=== PATIENT | male | born 1935 | race Caucasian/White ===

== ENCOUNTER 2018-12-06 18:07 | Emergency (ER) | payer MEDICARE, OTHER ==
[~2018-12-06] VITALS: Ht 172.7 cm; Wt 78.5 kg
[2018-12-06] MEDS ORDERED: BENA20TA8 PO (18:54)
[2018-12-06] MEDS ORDERED: ASPI81TA85 PO (18:54)
[2018-12-06] MEDS ORDERED: FLOM0.4C39 PO (18:54)
[2018-12-06] MEDS ORDERED: KEFL250C11 PO (18:56)
[2018-12-06 20:29] LABS: BASO % 0.4 % (0.0-1.0); EOS % 0.2 % (0.0-3.0); HEMATOCRIT 45.3 % (42.0-52.0); HEMOGLOBIN 14.9 g/dl (13.5-17.5); LYMPH # 0.8 10^3/uL (1.5-4.5); LYMPH % 9.9 % (24.0-44.0); MEAN CORPUSCULAR HEMOGLOBIN 31.3 pg (27.0-33.0); MEAN CORPUSCULAR HGB CONC 32.9 g/dl (32.0-36.5); MEAN CORPUSCULAR VOLUME 95.2 fl (80.0-96.0); MONO # 0.7 10^3/uL (0.0-0.8); MONO % 9.2 % (0.0-5.0); NEUTROPHILS # 6.4 10^3/uL (1.8-7.7); NEUTROPHILS % 80.1 % (36.0-66.0); PLATELET COUNT, AUTOMATED 204 10^3/uL (150-450); RED BLOOD COUNT 4.76 10^6/uL (4.30-6.10); WHITE BLOOD COUNT 8.1 10^3/uL (4.0-10.0)
[2018-12-06 20:57] LABS: BLOOD UREA NITROGEN 16 MG/DL (7-18); CALCIUM LEVEL 9.4 MG/DL (8.8-10.2); CARBON DIOXIDE LEVEL 25 MEQ/L (21-32); CHLORIDE LEVEL 108 MEQ/L (98-107); CREATININE FOR GFR 0.94 MG/DL (0.70-1.30); GLOMERULAR FILTRATION RATE > 60.0 (>35); GLUCOSE, FASTING 146 MG/DL (70-100); SODIUM LEVEL 141 MEQ/L (136-145)
[2018-12-06] MEDS ORDERED: ISOVUE-370 76% 100ML VIAL (Q9967) As Ordered ONE (21:13)
[2018-12-06 21:20] VITALS: BP 148/74
--- NOTE | 2018-12-06 22:54 | REPVR ---
EXAM: CT Pelvis With Contrast EXAM DATE/TIME: 12/06/2018 9:35 PM CLINICAL HISTORY: 83 years old, male; Pelvic pain; Additional info: Pelvic pain- right side, elevated psa, urinary retention TECHNIQUE: Imaging protocol: Axial computed tomography images of the pelvis with intravenous contrast. Coronal and sagittal reformatted images were created and reviewed. Radiation optimization: All CT scans at this facility use at least one of these dose optimization techniques: automated exposure control; mA and/or kV adjustment per patient size (includes targeted exams where dose is matched to clinical indication); or iterative reconstruction. Contrast material: ISOVUE 370;Contrast volume: 100 ml;Contrast route: IV; COMPARISON: No relevant prior studies available. FINDINGS: Gallbladder and bile ducts: Gallstones in the gallbladder. Kidneys and ureters: There is question of minimal distal right hydroureter which suggests involvement of the right trigone. Stomach and bowel: Sigmoid diverticulosis without diverticulitis. Appendix: There are no changes of appendicitis. A normal appendix is not seen. Bladder: There is a Pappas catheter in the bladder. Reproductive: There is mild prostatic enlargement, particularly on the right. There is slight induration of right periprosthetic fat. Intraperitoneal space: Unremarkable. No free air. No significant fluid collection. Vasculature: There is mild calcification of the abdominal aorta with extension into the iliac arteries. 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 Lymph nodes: Unremarkable. No enlarged lymph nodes. Bones/joints: No osseous sclerosis is noted in the visualized structures. Soft tissues: Unremarkable. IMPRESSION: 1. Pappas catheter in the bladder. 2. There is mild prostatic enlargement, slightly greater on the right. There is question of slight right periprosthetic induration and there is suggestion of minimal distal right hydroureter which suggests possible involvement of the right trigone. 3. Colonic diverticulosis without diverticulitis. Electronically signed by: Curt Khoury On 12/06/2018 22:54:06 PM
== END 2018-12-06 23:41 | disposition home or self-care (01) ==
LOC: M ED 18:07
DX: R33.9 Retention of urine, unspecified (principal); R39.12 Poor urinary stream; N40.1 Benign prostatic hyperplasia with lower urinary tract symptoms; I10 Essential (primary) hypertension; Z79.899 Other long term (current) drug therapy; Z79.82 Long term (current) use of aspirin
CPT/HCPCS: 36415; 51702; 72193; 80048; 81001; 85025; 87086; 99284; G0103; Q9967

== ENCOUNTER → 2018-12-06 | Outpatient (REF) | payer MEDICARE, OTHER ==
[~2018-12-06] MED LIST: ASPI81TA85 PO; BENA20TA8 PO; FLOM0.4C39 PO; KEFL250C11 PO
== END ==
LOC: M LAB REF 12:54
PROVIDERS: ATTEND Physician Assistant
DX: R39.12 Poor urinary stream (principal)

== ENCOUNTER → 2018-12-16 | Outpatient (CLI) | payer MEDICARE, OTHER ==
[~2018-12-16] MED LIST changes: +ISOVUE-370 76% 100ML VIAL (Q9967) As Ordered ONE
--- NOTE | 2018-12-17 07:15 | REP ---
REASON FOR EXAM: Microscopic hematuria. Comparison examination 12/06/2018 CT of the pelvis, 01/08/2017 CT abdomen and pelvis. CONTRAST: 100 mL Isovue 370. The lung bases are unchanged. There is cylindrical bronchiectasis. There is mild lung field hyperexpansion. There is cholelithiasis status quo. The precontrast enhanced portion of the examination shows a tiny calcification in the interpolar region of the left kidney unchanged from 01/08/2017. It is not causing obstructive phenomenon. There are bilateral renovascular calcifications. There is no hydronephrosis or hydroureter. There are no ureteroliths. There are no urinary bladder calcifications. 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 The contrast enhanced portion of the examination shows a focal cortical defect in the interpolar region of the left kidney which is unchanged and consistent with a small renal scar. There is also an unchanged cyst in the left kidney. There are no enhancing renal masses. The liver and spleen are unchanged and again seen to be within normal limits. The pancreas and adrenal glands are unchanged and again seen to be within normal limits. The abdominal aorta is seen with calcific atherosclerotic change and mural thrombus status quo. There is no para-aortic adenopathy. There is no free fluid or free air. The bowel loops and the mesenteries are essentially unchanged. There is colonic diverticulosis particularly affecting the descending colon. CT PELVIS: There is prostatomegaly. There is no pelvic side wall adenopathy. There is sigmoid colon diverticulosis status quo. There is no free fluid or free air. Bone window technique throughout the exam shows chronic hip, sacroiliac joint, and spinal degenerative changes status quo. IMPRESSION: Chronic intra-abdominal and intrapelvic findings as described above. There is cholelithiasis. There are old left renal changes as described above. There is colonic diverticulosis. There is no evidence of acute intra-abdominal or intrapelvic disease. There are chronic lung base changes as well. Electronically Signed by Forrest Ryan DO 12/17/2018 10:06 A
== END ==
LOC: M RAD 15:55
PROVIDERS: ATTEND Nurse Practitioner Women's Health
DX: K80.20 Calculus of gallbladder without cholecystitis without obstruction (principal); K57.90 Diverticulosis of intestine, part unspecified, without perforation or abscess without bleeding; R91.8 Other nonspecific abnormal finding of lung field
CPT/HCPCS: 74178; Q9967

== ENCOUNTER → 2022-03-14 | Outpatient (REF) | payer MEDICARE, OTHER ==
[~2022-03-14] MED LIST changes: -ASPI81TA85 PO; +ASPI81TA86 PO; +BENA-8 PO; -BENA20TA8 PO; -ISOVUE-370 76% 100ML VIAL (Q9967) As Ordered ONE
== END ==
LOC: M LAB REF 12:06
PROVIDERS: ATTEND Nurse Practitioner Adult Health
DX: M25.59 Pain in other specified joint (principal)

== ENCOUNTER → 2022-10-05 | Outpatient (CLI) | payer MEDICARE, OTHER | LOC: M WUC 15:17 | PROVIDERS: ATTEND Internal Medicine | DX: R06.02 Shortness of breath (principal) ==

== ENCOUNTER → 2022-11-07 | Outpatient (CLI) | payer MEDICARE, OTHER ==
[~2022-11-07] MED LIST changes: +E-Z-GAS II EFFERVESCENT PACKET (SODIUM BICARB./CITRIC ACID/SIMETHICONE) As Ordered ONE; +E-Z-HD 98% w/w 340GM SUSP BTL As Ordered ONE; +E-Z-PAQUE 96% w/w SUSP 176GM BTL As Ordered ONE
== END ==
LOC: M RAD 08:11
PROVIDERS: ATTEND Internal Medicine
DX: R13.10 Dysphagia, unspecified (principal)

== ENCOUNTER 2023-05-06 10:29 | Emergency (ER) | payer MEDICARE, OTHER ==
[~2023-05-06] VITALS: Ht 154.9 cm; Wt 65.1 kg
[~2023-05-06 10:29] MED LIST changes: -E-Z-GAS II EFFERVESCENT PACKET (SODIUM BICARB./CITRIC ACID/SIMETHICONE) As Ordered ONE; -E-Z-HD 98% w/w 340GM SUSP BTL As Ordered ONE; -E-Z-PAQUE 96% w/w SUSP 176GM BTL As Ordered ONE
[2023-05-06] MEDS ORDERED: AMLO1TAB24 (10:43)
[2023-05-06] MEDS ORDERED: IPRATROPIUM 0.5MG/ALBUTEROL 2.5MG INH SOL UD 3ML (DUONEB) NEB ONE ×2 (10:55→11:15)
[2023-05-06] MEDS ORDERED: NS 500 ML IV ONE (10:55)
[2023-05-06] MEDS ORDERED: NS 1,000 ML IV SCH (10:55)
[2023-05-06] MEDS ORDERED: methylPREDNISolone 125MG 2ML VIAL IV ONE (10:55)
[2023-05-06] MEDS ORDERED: ALBUTEROL SULFATE 2.5MG/0.5ML INH NEB SOLN INH ONE ×3 (10:55→13:50)
[2023-05-06 11:42] LABS: BASO % 0.1 % (0.0-1.0); HEMATOCRIT 34.5 % (42.0-52.0); HEMOGLOBIN 11.3 g/dl (13.5-17.5); LYMPH # 0.5 10^3/uL (1.5-5.0); LYMPH % 6.7 % (24.0-44.0); MEAN CORPUSCULAR HEMOGLOBIN 29.1 pg (27.0-33.0); MEAN CORPUSCULAR HGB CONC 32.8 g/dl (32.0-36.5); MEAN CORPUSCULAR VOLUME 88.9 fl (80.0-96.0); MONO # 0.8 10^3/uL (0.0-0.8); MONO % 10.9 % (2.0-8.0); NEUTROPHILS # 6.2 10^3/uL (1.5-8.5); NEUTROPHILS % 81.9 % (36.0-66.0); PLATELET COUNT, AUTOMATED 301 10^3/uL (150-450); RED BLOOD COUNT 3.88 10^6/uL (4.30-6.10); WHITE BLOOD COUNT 7.6 10^3/uL (4.0-10.0)
[2023-05-06 11:52] LABS: ABG BASE EXCESS 1.6 (-2.0-2.0); ABG HCO3 24.4 MMOL/L (22.0-26.0); ABG O2 SATURATION 97.4 % (95.0-99.0); ABG PARTIAL PRESSURE CO2 32.5 mmHg (35.0-45.0); ABG PARTIAL PRESSURE O2 90.8 mmHg (75.0-100.0); ABG STANDARD HCO3 25.9 MMOL/L. (22.0-26.0); ABG TOTAL CO2 25.4 MMOL/L (23.0-31.0); ABG pH (ARTERIAL) 7.494 UNITS (7.350-7.450)
[2023-05-06 12:07] LABS: ALBUMIN 2.8 G/DL (3.2-5.2); ALKALINE PHOSPHATASE 60 U/L (46-116); ALT/SGPT 22 U/L (7.0-40); AST/SGOT 22 U/L (<34); BILIRUBIN,DIRECT 0.5 MG/DL (<0.4); BILIRUBIN,TOTAL 1.2 MG/DL (0.3-1.2); BLOOD UREA NITROGEN 12 MG/DL (9-23); CALCIUM LEVEL 8.7 MG/DL (8.3-10.6); CARBON DIOXIDE LEVEL 26 MMOL/L (20-31); CHLORIDE LEVEL 101 MMOL/L (98-107); CK-MB VALUE MASS < 1.0 NG/ML (<3.6); CPK CREATINE PHOSPHOKINASE 41 U/L (46-171); CREATININE FOR GFR 0.65 MG/DL (0.70-1.30); GLOMERULAR FILTRATION RATE > 60.0 (>35); GLUCOSE, FASTING 152 MG/DL (74-106); MB/CK RELATIVE INDEX 2.43 (< OR =4); POTASSIUM SERUM 3.6 MMOL/L (3.5-5.1); SODIUM LEVEL 133 MMOL/L (136-145); TOTAL PROTEIN 7.1 G/DL (5.7-8.2)
[2023-05-06 12:09] LABS: THYROID STIMULATING HORMONE 3.377 uIU/ML (0.55-4.78); THYROXINE (T4) 7.6 UG/DL (4.5-10.9)
[2023-05-06 13:09] LABS: CK-MB VALUE MASS < 1.0 NG/ML (<3.6)
[2023-05-06 13:11] LABS: CPK CREATINE PHOSPHOKINASE 57 U/L (46-171); MB/CK RELATIVE INDEX 1.75 (< OR =4)
[2023-05-06] MEDS ORDERED: MOXIFLOXACIN 400 MG TAB PO ONE (13:50)
[2023-05-06] MEDS ORDERED: PRED20TA PO (13:51)
[2023-05-06] MEDS ORDERED: MOXI1TAB PO (13:51)
[2023-05-06] MEDS ORDERED: ALBU6.7H6 INH (13:52)
[2023-05-06] MEDS ORDERED: ALBUTEROL 90 MCG/ACT 8GM HFA INHALER INH ONE (14:00)
[2023-05-06 14:30] VITALS: BP 125/72; TEMP 98.6; O2SAT 96
== END 2023-05-06 14:32 | disposition home or self-care (01) ==
LOC: M ED 10:29
DX: J20.9 Acute bronchitis, unspecified (principal); R00.0 Tachycardia, unspecified; I44.4 Left anterior fascicular block; I10 Essential (primary) hypertension; Z87.891 Personal history of nicotine dependence; Z79.52 Long term (current) use of systemic steroids; Z79.82 Long term (current) use of aspirin; Z79.899 Other long term (current) drug therapy
CPT/HCPCS: 36600; 71045; 80048; 80076; 82550; 82553; 82803; 83605; 83880; 84436; 84443; 84484; 85025; 87040; 87486; 87581; 87633; 87798; 93005; 93041; 94640; 94664; 94760; 96361; 96374; 99285; J2930

== ENCOUNTER → 2023-09-27 | Outpatient (CLI) | payer MEDICARE, OTHER ==
[~2023-09-27] MED LIST changes: +ALBU6.7H6 INH; +AMLO1TAB24; +MOXI1TAB PO; +PRED20TA PO
[2023-09-27 18:29] LABS: BASO % 0.3 % (0.0-1.0); EOS % 0.2 % (0.0-3.0); HEMATOCRIT 33.6 % (42.0-52.0); HEMOGLOBIN 12.5 g/dl (13.5-17.5); LYMPH # 0.7 10^3/uL (1.5-5.0); LYMPH % 11.1 % (24.0-44.0); MEAN CORPUSCULAR HEMOGLOBIN 34.6 pg (27.0-33.0); MEAN CORPUSCULAR VOLUME 93.1 fl (80.0-96.0); MONO # 1.1 10^3/uL (0.0-0.8); MONO % 17.2 % (2.0-8.0); NEUTROPHILS # 4.3 10^3/uL (1.5-8.5); NEUTROPHILS % 70.5 % (36.0-66.0); PLATELET COUNT, AUTOMATED 411 10^3/uL (150-450); RED BLOOD COUNT 3.61 10^6/uL (4.30-6.10); WHITE BLOOD COUNT 6.1 10^3/uL (4.0-10.0)
[2023-09-27 18:33] LABS: MEAN CORPUSCULAR HGB CONC 37.2 g/dl (32.0-36.5)
[2023-09-27 18:48] LABS: ALKALINE PHOSPHATASE 76 U/L (46-116); ALT/SGPT 19 U/L (7.0-40); AST/SGOT 20 U/L (<34); BILIRUBIN,TOTAL 0.7 MG/DL (0.3-1.2); BLOOD UREA NITROGEN 15 MG/DL (9-23); CALCIUM LEVEL 9.2 MG/DL (8.3-10.6); CARBON DIOXIDE LEVEL 24 MMOL/L (20-31); CHLORIDE LEVEL 100 MMOL/L (98-107); CREATININE FOR GFR 0.73 MG/DL (0.70-1.30); GLOMERULAR FILTRATION RATE > 60.0 (>35); GLUCOSE, FASTING 206 MG/DL (74-106); SODIUM LEVEL 134 MMOL/L (136-145); TOTAL PROTEIN 7.3 G/DL (5.7-8.2)
== END ==
LOC: M WUC 14:31
PROVIDERS: ATTEND Student in an Organized Health Care Education/Training Program
DX: R06.02 Shortness of breath (principal); R30.0 Dysuria

== ENCOUNTER → 2023-12-31 | Outpatient (REF) | payer MEDICARE ==
[2023-12-31 17:49] LABS: FERRITIN 370.4 NG/ML (10.5-307.3); FOLATE 16.4 NG/ML (>5.4)
== END ==
LOC: M LAB REF 16:23
PROVIDERS: ATTEND Internal Medicine
DX: D64.9 Anemia, unspecified (principal)

== ENCOUNTER 2024-04-07 12:20 | Inpatient (IN) | payer MEDICARE ==
[~2024-04-07] VITALS: Ht 154.9 cm; Wt 57.5 kg
[~2024-04-07 12:20] MED LIST changes: -AMLO1TAB24; +AMLO1TAB24 PO
[2024-04-07 13:16] LABS: BASO % 0.1 % (0.0-1.0); HEMATOCRIT 37.2 % (42.0-52.0); HEMOGLOBIN 12.4 g/dl (13.5-17.5); LYMPH # 0.4 10^3/uL (1.5-5.0); LYMPH % 5.2 % (24.0-44.0); MEAN CORPUSCULAR HEMOGLOBIN 29.1 pg (27.0-33.0); MEAN CORPUSCULAR HGB CONC 33.3 g/dl (32.0-36.5); MEAN CORPUSCULAR VOLUME 87.3 fl (80.0-96.0); MONO # 0.4 10^3/uL (0.0-0.8); MONO % 5.6 % (2.0-8.0); NEUTROPHILS # 6.3 10^3/uL (1.5-8.5); NEUTROPHILS % 88.8 % (36.0-66.0); PLATELET COUNT, AUTOMATED 414 10^3/uL (150-450); RED BLOOD COUNT 4.26 10^6/uL (4.30-6.10); WHITE BLOOD COUNT 7.1 10^3/uL (4.0-10.0)
[2024-04-07] MEDS: NS 500 ML IV ONE (13:35)
[2024-04-07 13:38] LABS: AMPHETAMINES LEVEL URINE NEGATIVE (NEGATIVE); BARBITURATES URINE NEGATIVE (NEGATIVE); BENZODIAZEPINES URINE NEGATIVE (NEGATIVE); COCAINE METABOLITE URINE NEGATIVE (NEGATIVE); METHADONE URINE NEGATIVE (NEGATIVE); OPIATES URINE NEGATIVE (NEGATIVE); PHENCYCLIDINE URINE NEGATIVE (NEGATIVE)
[2024-04-07 13:39] LABS: CANNABINOIDS URINE NEGATIVE (NEGATIVE)
[2024-04-07 13:39] LABS: ETHYL ALCOHOL (ETHANOL) < 0.003 % (0.000-0.010)
[2024-04-07 13:40] LABS: ALBUMIN 2.8 G/DL (3.2-5.2); ALKALINE PHOSPHATASE 78 U/L (40-129); ALT/SGPT 24 U/L (7.0-40); AST/SGOT 41 U/L (<34); BILIRUBIN,DIRECT 0.2 MG/DL (<0.4); BILIRUBIN,TOTAL 0.8 MG/DL (0.3-1.2); BLOOD UREA NITROGEN 13 MG/DL (9-23); CALCIUM LEVEL 8.9 MG/DL (8.3-10.6); CARBON DIOXIDE LEVEL 26 MMOL/L (20-31); CHLORIDE LEVEL 105 MMOL/L (98-107); CK-MB VALUE MASS 2.1 NG/ML (<3.6); CREATININE FOR GFR 0.74 MG/DL (0.70-1.30); GLOMERULAR FILTRATION RATE > 60.0 (>35); GLUCOSE, FASTING 152 MG/DL (74-106); POTASSIUM SERUM 4.1 MMOL/L (3.5-5.1); SALICYLATE LEVEL < 3.0 MG/DL (<30); SODIUM LEVEL 139 MMOL/L (136-145); TOTAL PROTEIN 7.5 G/DL (5.7-8.2)
[2024-04-07 13:44] LABS: THYROID STIMULATING HORMONE 2.793 uIU/ML (0.55-4.78)
[2024-04-07 13:45] LABS: CPK CREATINE PHOSPHOKINASE 259 U/L (46-171); MB/CK RELATIVE INDEX 0.81 (< OR =4)
[2024-04-07] MEDS: ACETAMINOPHEN *IV* 1,000 MG in IV 1 EA IV ONE (14:00)
[2024-04-07 14:05] LABS: VENOUS BASE EXCESS 0.9 (-2.0-2.0); VENOUS HCO3 25.7 MMOL/L (23.0-27.0); VENOUS O2 SATURATION 69.7 % (60.0-80.0); VENOUS PARTIAL PRESSURE CO2 41.7 mmHg (38.0-50.0); VENOUS PARTIAL PRESSURE O2 37.1 mmHg (30.0-50.0); VENOUS PH 7.407 UNITS (7.330-7.430); VENOUS STANDARD HCO3 24.6 MMOL/L; VENOUS TOTAL CO2 26.9 MMOL/L (24.0-28.0)
[2024-04-07 15:08] LABS: OSMOLALITY SERUM 298 MOSM/KG (280-301)
[2024-04-07] MEDS: METOPROLOL 5 MG/5 ML VIAL IV STA (16:30)
[2024-04-07] MEDS: NS 1,000 ML IV SCH (16:35)
[2024-04-07] MEDS ORDERED: GLUCAGON INJ 1MG VIAL SC PRN (17:45)
[2024-04-07] MEDS ORDERED: GLUCOSE 4 GM CHEW PO PRN (17:45)
[2024-04-07] MEDS ORDERED: DEXTROSE 50% 50ML SYRINGE IV PRN (17:45)
[2024-04-07] MEDS: cefTRIAXone SOD 1 GM in DEXTROSE 5% (D5W) ADV/MINI-BAG 50 ML IV SCH (18:00)
[2024-04-07] MEDS ORDERED: HOME MED LIST COMPLETE! XX SCH (18:25)
[2024-04-07 18:36] LABS: HEMOGLOBIN A1c 5.9 % (4.0-6.0)
[2024-04-07 18:56] LABS: FREE T4 0.92 NG/DL (0.89-1.76); THYROID STIMULATING HORMONE 2.207 uIU/ML (0.55-4.78)
[2024-04-07] MEDS: INSULIN LISPRO (NovoLOG) PER UNIT SC SCH (21:00)
[2024-04-07] MEDS: DOXYCYCLINE HYCLATE 100MG TABLET PO SCH (21:00)
[2024-04-07 22:20] VITALS: BP 133/76; TEMP 97.8; O2SAT 100
[2024-04-08 04:27] VITALS: BP 122/73; TEMP 97.5; O2SAT 96
[2024-04-08 06:06] LABS: HEMATOCRIT 33.1 % (42.0-52.0); HEMOGLOBIN 10.6 g/dl (13.5-17.5); MEAN CORPUSCULAR HEMOGLOBIN 28.3 pg (27.0-33.0); MEAN CORPUSCULAR VOLUME 88.5 fl (80.0-96.0); PLATELET COUNT, AUTOMATED 358 10^3/uL (150-450); RED BLOOD COUNT 3.74 10^6/uL (4.30-6.10); WHITE BLOOD COUNT 4.4 10^3/uL (4.0-10.0)
[2024-04-08 06:37] LABS: ALBUMIN 2.2 G/DL (3.2-5.2); ALKALINE PHOSPHATASE 63 U/L (40-129); ALT/SGPT 18 U/L (7.0-40); AST/SGOT 22 U/L (<34); BILIRUBIN,TOTAL 0.5 MG/DL (0.3-1.2); BLOOD UREA NITROGEN 14 MG/DL (9-23); CALCIUM LEVEL 8.3 MG/DL (8.3-10.6); CARBON DIOXIDE LEVEL 25 MMOL/L (20-31); CHLORIDE LEVEL 108 MMOL/L (98-107); CREATININE FOR GFR 0.82 MG/DL (0.70-1.30); GLOMERULAR FILTRATION RATE > 60.0 (>35); GLUCOSE, FASTING 110 MG/DL (74-106); POTASSIUM SERUM 3.5 MMOL/L (3.5-5.1); SODIUM LEVEL 141 MMOL/L (136-145); TOTAL PROTEIN 6.5 G/DL (5.7-8.2)
[2024-04-08] MEDS: INSULIN LISPRO (NovoLOG) PER UNIT SC SCH (07:30)
[2024-04-08 08:02] LABS: ERYTHROCYTE SEDIMENTATION RATE 33 mm/hr (0-20)
[2024-04-08 08:35] VITALS: BP 143/79; TEMP 98.2; O2SAT 96
[2024-04-08 10:53] LABS: PROCALCITONIN <0.04 ng/ml
[2024-04-08 11:35] LABS: FOLATE 12.36 NG/ML (>5.4); VITAMIN B12 LEVEL 678 PG/ML (211-911)
[2024-04-08 12:06] VITALS: BP 142/73; TEMP 98.2; O2SAT 96
[2024-04-08] MEDS ORDERED: METOPROLOL 5 MG/5 ML VIAL As Ordered ONE (14:00)
[2024-04-08] MEDS: METOPROLOL 5 MG/5 ML VIAL IV SCH (14:05)
[2024-04-08] MEDS: MIDODRINE 5 MG TAB PO ONE (15:15)
[2024-04-08 15:19] VITALS: BP 136/88; TEMP 98.1; O2SAT 97
[2024-04-08] MEDS: METOPROLOL 5 MG/5 ML VIAL IV STA (15:25)
[2024-04-08] MEDS: METOPROLOL TART 25 MG TABLET PO ONE (15:25)
[2024-04-08] MEDS: DIGOXIN INJ 0.5 MG/2 ML AMP IV STA (15:26)
[2024-04-08] MEDS: atenoloL 50 MG TAB PO ONE (17:18)
[2024-04-08] MEDS ORDERED: METOPROLOL TART 25 MG TABLET PO SCH (18:00)
[2024-04-08 19:17] VITALS: BP 155/87; TEMP 98; O2SAT 96
[2024-04-09 00:11] VITALS: BP 164/80; TEMP 98.4; O2SAT 98
[2024-04-09 05:42] VITALS: BP 145/72; TEMP 98.8; O2SAT 98
[2024-04-09] MEDS ORDERED: ISOVUE-370 76% 100ML VIAL As Ordered ONE (07:07)
[2024-04-09] MEDS: atenoloL 50 MG TAB PO ONE (07:24)
[2024-04-09] MEDS: DIGOXIN INJ 0.5 MG/2 ML AMP IV ONE (07:24)
[2024-04-09 08:00] VITALS: BP 122/80; TEMP 99.8; O2SAT 94
[2024-04-09 09:05] LABS: HEMATOCRIT 32.6 % (42.0-52.0); HEMOGLOBIN 10.8 g/dl (13.5-17.5); MEAN CORPUSCULAR HGB CONC 33.1 g/dl (32.0-36.5); MEAN CORPUSCULAR VOLUME 87.6 fl (80.0-96.0); PLATELET COUNT, AUTOMATED 339 10^3/uL (150-450); RED BLOOD COUNT 3.72 10^6/uL (4.30-6.10); WHITE BLOOD COUNT 8.9 10^3/uL (4.0-10.0)
[2024-04-09 09:12] LABS: ERYTHROCYTE SEDIMENTATION RATE 59 mm/hr (0-20)
[2024-04-09] MEDS ORDERED: VARIBAR PUDDING 40% w/v 230ML TUBE As Ordered ONE (09:15)
[2024-04-09] MEDS ORDERED: E-Z-PAQUE 96% w/w SUSP 176GM BTL As Ordered ONE (09:16)
[2024-04-09] MEDS ORDERED: BARIUM SULFATE 700 MG TABLET (E-Z-DISK) As Ordered ONE (09:16)
[2024-04-09] MEDS ORDERED: VARIBAR NECTAR 40% w/v 240ML SUSP BTL As Ordered ONE (09:16)
[2024-04-09 09:24] LABS: ALBUMIN 2.2 G/DL (3.2-5.2); ALKALINE PHOSPHATASE 63 U/L (40-129); ALT/SGPT 17 U/L (7.0-40); AST/SGOT 23 U/L (<34); BILIRUBIN,TOTAL 0.6 MG/DL (0.3-1.2); BLOOD UREA NITROGEN 13 MG/DL (9-23); CALCIUM LEVEL 8.4 MG/DL (8.3-10.6); CARBON DIOXIDE LEVEL 23 MMOL/L (20-31); CHLORIDE LEVEL 106 MMOL/L (98-107); CREATININE FOR GFR 0.63 MG/DL (0.70-1.30); DIGOXIN LEVEL 0.8 NG/ML (0.8-2.0); GLOMERULAR FILTRATION RATE > 60.0 (>35); GLUCOSE, FASTING 154 MG/DL (74-106); POTASSIUM SERUM 3.3 MMOL/L (3.5-5.1); SODIUM LEVEL 138 MMOL/L (136-145); TOTAL PROTEIN 6.6 G/DL (5.7-8.2)
[2024-04-09 09:35] LABS: PROCALCITONIN <0.04 ng/ml
[2024-04-09 11:47] VITALS: BP 120/75; TEMP 99.5; O2SAT 95
[2024-04-09] MEDS: POTASSIUM CHLORIDE 10MEQ SR TABLET PO ONE (12:56)
[2024-04-09 16:00] VITALS: BP 117/67; TEMP 98; O2SAT 97
[2024-04-09 20:07] VITALS: BP 127/73; TEMP 98.2; O2SAT 98
[2024-04-10] VITALS (9 sets, daily range): BP systolic 101–152; BP diastolic 54–83; TEMP 97.4–101.3; O2SAT 94–99
[2024-04-10] MEDS: ACETAMINOPHEN 325 MG TAB PO PRN (02:12)
[2024-04-10] MEDS: atenoloL 50 MG TAB PO SCH (07:52)
[2024-04-10] MEDS: POTASSIUM CHLORIDE 10MEQ SR TABLET PO SCH (08:21)
[2024-04-10] MEDS: FINASTERIDE 5MG TAB PO SCH (08:24)
[2024-04-10] MEDS: PANTOPRAZOLE 40MG VIAL IV ONE (09:34)
[2024-04-10] MEDS: NS 500 ML IV ONE (09:34)
[2024-04-10] MEDS: SUCRALFATE SUSP 1GM/10ML UD PO ONE (09:34)
[2024-04-10] MEDS: ONDANSETRON 4MG 2ML VIAL IV ONE (09:34)
[2024-04-10] MEDS: NITROGLYCERIN 0.4MG SUBL TABLET SL STA (09:39)
[2024-04-10 10:10] LABS: BASO % 0.3 % (0.0-1.0); EOS % 0.1 % (0.0-3.0); HEMATOCRIT 34.6 % (42.0-52.0); HEMOGLOBIN 11.4 g/dl (13.5-17.5); LYMPH # 0.7 10^3/uL (1.5-5.0); LYMPH % 9.6 % (24.0-44.0); MEAN CORPUSCULAR HEMOGLOBIN 29.3 pg (27.0-33.0); MEAN CORPUSCULAR HGB CONC 32.9 g/dl (32.0-36.5); MEAN CORPUSCULAR VOLUME 88.9 fl (80.0-96.0); MONO # 0.5 10^3/uL (0.0-0.8); MONO % 7.1 % (2.0-8.0); NEUTROPHILS # 5.7 10^3/uL (1.5-8.5); NEUTROPHILS % 82.5 % (36.0-66.0); RED BLOOD COUNT 3.89 10^6/uL (4.30-6.10); WHITE BLOOD COUNT 6.9 10^3/uL (4.0-10.0)
[2024-04-10 10:20] LABS: CK-MB VALUE MASS < 1.0 NG/ML (<3.6); LIPASE 23 U/L (12-53)
[2024-04-10 10:27] LABS: ALBUMIN 2.4 G/DL (3.2-5.2); ALKALINE PHOSPHATASE 63 U/L (40-129); ALT/SGPT 19 U/L (7.0-40); AST/SGOT 26 U/L (<34); BILIRUBIN,TOTAL 0.5 MG/DL (0.3-1.2); BLOOD UREA NITROGEN 21 MG/DL (9-23); CALCIUM LEVEL 8.8 MG/DL (8.3-10.6); CARBON DIOXIDE LEVEL 28 MMOL/L (20-31); CHLORIDE LEVEL 110 MMOL/L (98-107); CPK CREATINE PHOSPHOKINASE 62 U/L (46-171); CREATININE FOR GFR 0.73 MG/DL (0.70-1.30); GLOMERULAR FILTRATION RATE > 60.0 (>35); GLUCOSE, FASTING 111 MG/DL (74-106); MAGNESIUM LEVEL 1.9 MG/DL (1.8-2.4); MB/CK RELATIVE INDEX 1.61 (< OR =4); POTASSIUM SERUM 3.6 MMOL/L (3.5-5.1); SODIUM LEVEL 143 MMOL/L (136-145); TOTAL PROTEIN 6.9 G/DL (5.7-8.2)
[2024-04-10 10:33] LABS: PLATELET COUNT, AUTOMATED 341 10^3/uL (150-450)
[2024-04-10] MEDS: metroNIDAZOLE 500 MG in IV 1 EA IV SCH (12:07)
[2024-04-11 03:36] VITALS: BP 157/80; TEMP 98.3; O2SAT 97
[2024-04-11] MEDS ORDERED: METOPROLOL TART 25 MG TABLET PO PRN (07:35)
[2024-04-11 08:00] VITALS: BP 138/66; TEMP 97.7; O2SAT 96
[2024-04-11] MEDS: PANTOPRAZOLE 40MG VIAL IV SCH (08:53)
[2024-04-11 11:38] VITALS: BP 149/65; TEMP 98; O2SAT 82
[2024-04-11] MEDS: CEFDINIR 300 MG CAP (OMNICEF) PO SCH (12:48)
[2024-04-11 16:00] VITALS: BP 143/70; TEMP 97.7; O2SAT 97
[2024-04-11 19:20] VITALS: BP 154/75; TEMP 97.7; O2SAT 98
[2024-04-11] MEDS: metroNIDAZOLE (FLAGYL) 500MG TABLET PO SCH (22:24)
[2024-04-11 22:25] VITALS: BP 156/75; TEMP 99.1; O2SAT 98
[2024-04-12 03:00] VITALS: BP 128/65; TEMP 98.2; O2SAT 97
[2024-04-12 07:42] VITALS: BP 154/74; TEMP 98; O2SAT 97
[2024-04-12] MEDS: METOPROLOL TART 12.5 MG PER 1/2 TAB PO ONE (09:20)
[2024-04-12] MEDS: NITROGLYCERIN 2% OINT 1 GM *U/D* PKT TOP ONE (09:30)
[2024-04-12] MEDS: CALCIUM CARBONATE 500 MG CHEW U/D PO ONE (10:00)
[2024-04-12] MEDS ORDERED: CALCIUM CARBONATE 500 MG CHEW U/D PO PRN (10:00)
[2024-04-12] MEDS ORDERED: CARA1TAB6 PO (10:56)
[2024-04-12] MEDS ORDERED: METO1TAB87 PO (10:56)
[2024-04-12] MEDS ORDERED: DOXY100T PO (10:56)
[2024-04-12] MEDS ORDERED: PROT1TAB2 PO (10:56)
[2024-04-12] MEDS ORDERED: CEFD300CAP PO (10:56)
[2024-04-12] MEDS ORDERED: METR-265 PO (10:56)
[2024-04-12 11:52] VITALS: BP 131/71; TEMP 98.1; O2SAT 99
[2024-04-12] MEDS: SUCRALFATE SUSP 1GM/10ML UD PO SCH (12:00)
[2024-04-12] MEDS: METOPROLOL TART 12.5 MG PER 1/2 TAB PO SCH (12:40)
[2024-04-12 17:53] VITALS: BP 140/75
[2024-04-12 20:00] VITALS: BP 143/75; TEMP 96.8; O2SAT 96
[2024-04-12 23:30] VITALS: BP 143/75
[2024-04-13 04:00] VITALS: BP 155/87; TEMP 97.7; O2SAT 96
[2024-04-13 13:08] VITALS: BP 138/80
[2024-04-13] MEDS: METOPROLOL TART 25 MG TABLET PO SCH (13:11)
[2024-04-13 17:54] VITALS: BP 139/81
[2024-04-13 20:00] VITALS: BP 136/82; TEMP 98.1; O2SAT 99
[2024-04-13] MEDS: DOXAZOSIN MESYLATE 1 MG TAB PO SCH (21:39)
[2024-04-14] VITALS (7 sets, daily range): BP systolic 94–130; BP diastolic 66–72; TEMP 97.3–98.1; O2SAT 84–99
[2024-04-14 01:27] LABS: ALBUMIN 2.2 G/DL (3.2-5.2); ALKALINE PHOSPHATASE 53 U/L (40-129); ALT/SGPT 12 U/L (7.0-40); AST/SGOT 21 U/L (<34); BILIRUBIN,TOTAL 0.5 MG/DL (0.3-1.2); BLOOD UREA NITROGEN 12 MG/DL (9-23); CALCIUM LEVEL 8.5 MG/DL (8.3-10.6); CARBON DIOXIDE LEVEL 26 MMOL/L (20-31); CHLORIDE LEVEL 109 MMOL/L (98-107); CREATININE FOR GFR 0.56 MG/DL (0.70-1.30); GLOMERULAR FILTRATION RATE > 60.0 (>35); GLUCOSE, FASTING 126 MG/DL (74-106); MAGNESIUM LEVEL 1.8 MG/DL (1.8-2.4); POTASSIUM SERUM 3.5 MMOL/L (3.5-5.1); SODIUM LEVEL 144 MMOL/L (136-145); TOTAL PROTEIN 6.3 G/DL (5.7-8.2)
[2024-04-14] MEDS: PANTOPRAZOLE 40MG TAB (PROTONIX) PO SCH (08:41)
[2024-04-14] MEDS: MIDODRINE 5 MG TAB PO SCH (17:38)
[2024-04-15 03:36] VITALS: BP 146/82; TEMP 98.2; O2SAT 96
[2024-04-15 11:51] VITALS: BP 119/66
[2024-04-15] MEDS: FAMOTIDINE 20 MG TAB PO SCH (11:52)
[2024-04-15 17:03] VITALS: BP 127/70
[2024-04-15] MEDS: BISACODYL 10MG SUPP PR ONE (17:33)
[2024-04-15] MEDS ORDERED: DOXA1TAB91 PO (17:42)
[2024-04-15] MEDS ORDERED: SUCR1ORA PO (17:42)
[2024-04-15] MEDS ORDERED: FAMO20TA PO (17:42)
[2024-04-15] MEDS ORDERED: SENN1TAB85 PO (17:44)
== END 2024-04-15 18:45 | disposition home health service (06) | DRG 557 ==
LOC: EDBD 12:20 → M ED 12:20 → M ED INP 17:32 → M PCU 22:26 → M MS5PR 04-12 11:30
PROVIDERS: ADMIT Hospitalist; ATTEND Internal Medicine Nephrology
DX: M62.82 Rhabdomyolysis (principal); G93.41 Metabolic encephalopathy; J69.0 Pneumonitis due to inhalation of food and vomit; I47.10 Supraventricular tachycardia, unspecified; K21.9 Gastro-esophageal reflux disease without esophagitis; E11.9 Type 2 diabetes mellitus without complications; I10 Essential (primary) hypertension; R13.12 Dysphagia, oropharyngeal phase; N40.0 Benign prostatic hyperplasia without lower urinary tract symptoms; E78.5 Hyperlipidemia, unspecified; F03.90 Unspecified dementia, unspecified severity, without behavioral disturbance, psychotic disturbance, mood disturbance, and anxiety; K44.9 Diaphragmatic hernia without obstruction or gangrene; R33.9 Retention of urine, unspecified; J43.9 Emphysema, unspecified; Z79.899 Other long term (current) drug therapy; Z79.82 Long term (current) use of aspirin

== ENCOUNTER 2024-04-18 11:10 | Observation (INO) | payer MEDICARE ==
[~2024-04-18 11:10] MED LIST changes: +CARA1TAB6 PO; +CEFD300CAP PO; +DOXA1TAB91 PO; +DOXY100T PO; +FAMO20TA PO; +METO1TAB87 PO; +METR-265 PO; +PROT1TAB2 PO; +SENN1TAB85 PO; +SUCR1ORA PO
[2024-04-18 11:25] VITALS: TEMP 96.9
[2024-04-18 13:05] LABS: BASO % 0.1 % (0.0-1.0); EOS # 0.1 10^3/uL (0.0-0.5); EOS % 0.7 % (0.0-3.0); HEMATOCRIT 36.5 % (42.0-52.0); HEMOGLOBIN 11.8 g/dl (13.5-17.5); LYMPH # 0.5 10^3/uL (1.5-5.0); LYMPH % 7.1 % (24.0-44.0); MEAN CORPUSCULAR HEMOGLOBIN 28.2 pg (27.0-33.0); MEAN CORPUSCULAR HGB CONC 32.3 g/dl (32.0-36.5); MEAN CORPUSCULAR VOLUME 87.3 fl (80.0-96.0); MONO # 0.4 10^3/uL (0.0-0.8); MONO % 5.9 % (2.0-8.0); NEUTROPHILS # 5.9 10^3/uL (1.5-8.5); NEUTROPHILS % 85.8 % (36.0-66.0); PLATELET COUNT, AUTOMATED 338 10^3/uL (150-450); RED BLOOD COUNT 4.18 10^6/uL (4.30-6.10); WHITE BLOOD COUNT 6.9 10^3/uL (4.0-10.0)
[2024-04-18 13:37] LABS: ALBUMIN 2.2 G/DL (3.2-5.2); ALKALINE PHOSPHATASE 56 U/L (40-129); ALT/SGPT 13 U/L (7.0-40); AST/SGOT 27 U/L (<34); BILIRUBIN,DIRECT 0.2 MG/DL (<0.4); BILIRUBIN,TOTAL 0.4 MG/DL (0.3-1.2); BLOOD UREA NITROGEN 11 MG/DL (9-23); CALCIUM LEVEL 8.6 MG/DL (8.3-10.6); CARBON DIOXIDE LEVEL 28 MMOL/L (20-31); CHLORIDE LEVEL 100 MMOL/L (98-107); CREATININE FOR GFR 0.69 MG/DL (0.70-1.30); GLOMERULAR FILTRATION RATE > 60.0 (>35); GLUCOSE, FASTING 133 MG/DL (74-106); SODIUM LEVEL 136 MMOL/L (136-145); TOTAL PROTEIN 7.1 G/DL (5.7-8.2)
[2024-04-18 13:40] LABS: THYROID STIMULATING HORMONE 6.469 uIU/ML (0.55-4.78)
[2024-04-18 13:42] LABS: OSMOLALITY SERUM 291 MOSM/KG (280-301)
[2024-04-18] MEDS ORDERED: HOME MED LIST COMPLETE! XX SCH (14:05)
[2024-04-18] MEDS ORDERED: HYOSCYAMINE SULFATE 0.125 MG SUBL TABLET PO PRN (16:20)
[2024-04-18 17:25] VITALS: O2SAT 95
[2024-04-18 17:30] VITALS: BP 115/74
[2024-04-18] MEDS: FAMOTIDINE 20 MG TAB PO SCH (20:28)
[2024-04-18] MEDS: DOXAZOSIN MESYLATE 1 MG TAB PO SCH (20:28)
[2024-04-18] MEDS: LORazepam 1 MG TAB PO SCH (21:00)
[2024-04-19] MEDS: MORPHINE 10MG/0.5ML ORAL CONCENTRATE SOLUTION U/D SL PRN (22:06)
[2024-04-19] MEDS: ONDANSETRON 4MG ORAL DISINTEGRATING TAB PO PRN (22:08)
[2024-04-19] MEDS: OLANZapine ORAL DISINTEGRATING TAB 5MG PO PRN (22:08)
[2024-04-20] MEDS: LORazepam 1 MG TAB PO PRN (14:57)
[2024-04-21] MEDS: SCOPOLAMINE 1MG TRANSDERMAL PATCH TOP SCH (10:45)
[2024-04-21] MEDS ORDERED: LORazepam 1 MG TAB PO PRN (10:45)
[2024-04-21] MEDS: MORPHINE 10MG/0.5ML ORAL CONCENTRATE SOLUTION U/D SL SCH (11:28)
[2024-04-21] MEDS: LORazepam 2 MG TAB PO PRN (11:39)
[2024-04-21] MEDS: LORazepam 2 MG TAB PO SCH (16:12)
[2024-04-21] MEDS: MORPHINE 10MG/0.5ML ORAL CONCENTRATE SOLUTION U/D SL PRN (17:13)
[2024-04-21] MEDS: ATROPINE SULFATE 1% OPHTH SOLN 2ML BTL SL PRN (17:32)
== END 2024-04-27 17:00 | disposition expired ==
LOC: M ED 11:10 → EDBD 11:10 → M ED INP 11:11 → M MS5PR 19:51
PROVIDERS: ADMIT Internal Medicine Nephrology; ATTEND General Practice
DX: Z51.5 Encounter for palliative care (principal); Z66 Do not resuscitate; F03.90 Unspecified dementia, unspecified severity, without behavioral disturbance, psychotic disturbance, mood disturbance, and anxiety; G30.9 Alzheimer's disease, unspecified; G93.41 Metabolic encephalopathy; J69.0 Pneumonitis due to inhalation of food and vomit; W19.XXXA Unspecified fall, initial encounter; M62.82 Rhabdomyolysis; R62.7 Adult failure to thrive; R63.8 Other symptoms and signs concerning food and fluid intake; R53.81 Other malaise; R54 Age-related physical debility; I47.10 Supraventricular tachycardia, unspecified; R13.12 Dysphagia, oropharyngeal phase; K20.90 Esophagitis, unspecified without bleeding; K21.9 Gastro-esophageal reflux disease without esophagitis; K22.2 Esophageal obstruction; I10 Essential (primary) hypertension; E11.9 Type 2 diabetes mellitus without complications; E78.5 Hyperlipidemia, unspecified; N40.0 Benign prostatic hyperplasia without lower urinary tract symptoms; J43.9 Emphysema, unspecified; H91.90 Unspecified hearing loss, unspecified ear; Z79.899 Other long term (current) drug therapy
CPT/HCPCS: 36415; 70450; 80048; 80076; 83930; 84443; 85025; 93005; 93041; 94760; 99285; G0378